=== PATIENT | male | born 1945 | race Caucasian/White ===

== ENCOUNTER 2018-12-14 15:29 | Outpatient (REF) | payer MEDICARE, OTHER, SELFPAY ==
[2018-12-14 22:41] LABS: ALT 31 U/L (12-78); AST 22 U/L (15-37); Albumin 3.7 g/dL (3.4-5.0); Alkaline Phosphatase 49 U/L (46-116); Anion Gap 9.4 mmol/L (3-11); BUN 26 mg/dL (7-18); Bilirubin, Total 0.5 mg/dL (0.2-1.0); CO2 28.6 mmol/L (21.0-32.0); CREATININE 1.22 mg/dL (0.70-1.30); Calcium 9.5 mg/dL (8.5-10.1); Chloride 103 mmol/L (98-107); Estimated GFR 58.23 (mL/min/1.73m2); Glucose 84 mg/dL (70-100); Potassium 4.3 mmol/L (3.5-5.1); Sodium 141 mmol/L (136-145); Total Protein 6.9 g/dL (6.4-8.2)
== END 2018-12-14 15:49 ==
LOC: NCHCN 15:29
PROVIDERS: PCP Family Medicine; Visit Provider Family Medicine
DX: E78.5 Hyperlipidemia, unspecified (principal); N18.3 Chronic kidney disease, stage 3 (moderate)
CPT/HCPCS: 80053

== ENCOUNTER → 2019-04-04 12:56 | Outpatient (BNVA) | payer MEDICARE, OTHER, SELFPAY | PROVIDERS: PCP Family Medicine; Referring Provider Family Medicine; Visit Provider Surgery | DX: K60.2 Anal fissure, unspecified (principal) | CPT/HCPCS: 99201; 99213 ==

== ENCOUNTER 2020-01-31 15:12 | Outpatient (REF) | payer MEDICARE, OTHER, SELFPAY ==
[2020-01-31 21:20] LABS: ALT 38 U/L (16-63); AST 24 U/L (15-37); Albumin 3.6 g/dL (3.4-5.0); Alkaline Phosphatase 48 U/L (46-116); Anion Gap 6.8 mmol/L (3-11); BUN 22 mg/dL (7-18); Bilirubin, Total 0.7 mg/dL (0.2-1.0); CO2 27.2 mmol/L (21.0-32.0); CREATININE 1.39 mg/dL (0.70-1.30); Calcium 8.9 mg/dL (8.5-10.1); Calculated LDL 98 mg/dL (<100); Chloride 104 mmol/L (98-107); Cholesterol 194 mg/dL (<200); Estimated GFR 49.95 (mL/min/1.73m2); Glucose 94 mg/dL (74-106); HDL Cholesterol 81 mg/dL (40-60); Potassium 4.2 mmol/L (3.5-5.1); Sodium 138 mmol/L (136-145); Total Protein 6.6 g/dL (6.4-8.2); Triglyceride 76 mg/dL (<150)
[2020-02-02 07:06] LABS: Vitamin D 25 Total 34.8 ng/ml (30-100)
== END 2020-01-31 15:32 ==
LOC: NCHCN 15:12
PROVIDERS: PCP Family Medicine; Visit Provider Family Medicine
DX: I10 Essential (primary) hypertension (principal); N18.3 Chronic kidney disease, stage 3 (moderate); N40.0 Benign prostatic hyperplasia without lower urinary tract symptoms
CPT/HCPCS: 80053; 80061; 82306

== ENCOUNTER 2020-06-22 21:46 | Outpatient (REF) | payer MEDICARE, OTHER, SELFPAY ==
[2020-06-25 09:20] LABS: PSA, Diagnostic 2.8 ng/mL (0.0-6.5)
== END 2020-06-22 22:06 ==
LOC: LBN 21:46
PROVIDERS: PCP Family Medicine; Visit Provider Urology
DX: R97.20 Elevated prostate specific antigen [PSA] (principal)
CPT/HCPCS: 84153

== ENCOUNTER 2021-02-05 15:56 | Outpatient (REF) | payer MEDICARE, OTHER, SELFPAY ==
[2021-02-05 16:49] LABS: ALT 27 U/L (16-63); AST 17 U/L (15-37); Albumin 3.7 g/dL (3.4-5.0); Alkaline Phosphatase 57 U/L (46-116); Anion Gap 7.9 mmol/L (3-11); BUN 29 mg/dL (7-18); Bilirubin, Total 0.8 mg/dL (0.2-1.0); CO2 29.1 mmol/L (21.0-32.0); CREATININE 1.6 mg/dL (0.70-1.30); Calcium 9.1 mg/dL (8.5-10.1); Chloride 105 mmol/L (98-107); Estimated GFR 42.35 (mL/min/1.73m2); Glucose 88 mg/dL (74-106); Potassium 4.4 mmol/L (3.5-5.1); Sodium 142 mmol/L (136-145)
== END 2021-02-05 15:57 | disposition home or self-care (01) ==
LOC: NCHCN 15:56
PROVIDERS: PCP Family Medicine; Visit Provider Family Medicine
DX: I10 Essential (primary) hypertension (principal); E78.5 Hyperlipidemia, unspecified; Z00.00 Encounter for general adult medical examination without abnormal findings
CPT/HCPCS: 80053

== ENCOUNTER 2022-01-30 16:03 | Outpatient (REF) | payer MEDICARE, OTHER, SELFPAY ==
[2022-01-30 16:43] LABS: ALT 30 U/L (16-63); AST 20 U/L (15-37); Albumin 3.6 g/dL (3.4-5.0); Alkaline Phosphatase 43 U/L (46-116); Anion Gap 6.5 mmol/L (3-11); BUN 26 mg/dL (7-18); Bilirubin, Total 0.8 mg/dL (0.2-1.0); CO2 30.5 mmol/L (21.0-32.0); CREATININE 1.7 mg/dL (0.70-1.30); Calcium 8.9 mg/dL (8.5-10.1); Calculated LDL 96 mg/dL (<100); Chloride 105 mmol/L (98-107); Cholesterol 186 mg/dL (<200); Estimated GFR 41.26 (mL/min/1.73m2); Glucose 86 mg/dL (74-106); HDL Cholesterol 71 mg/dL (40-60); Potassium 4.3 mmol/L (3.5-5.1); Sodium 142 mmol/L (136-145); Total Protein 6.8 g/dL (6.4-8.2); Triglyceride 99 mg/dL (<150)
[2022-01-31 20:42] LABS: PSA, Screening 6.5 ng/mL (<=6.5)
== END 2022-01-30 16:04 | disposition home or self-care (01) ==
LOC: NCHCN 16:03
PROVIDERS: PCP Family Medicine; Visit Provider Family Medicine
DX: E78.5 Hyperlipidemia, unspecified (principal); N40.0 Benign prostatic hyperplasia without lower urinary tract symptoms; Z12.5 Encounter for screening for malignant neoplasm of prostate
CPT/HCPCS: 80053; 80061; 84153

== ENCOUNTER 2023-02-05 09:58 | Outpatient (REF) | payer MEDICARE, SELFPAY ==
[2023-02-05 16:03] LABS: ALT 34 U/L (16-63); AST 26 U/L (15-37); Albumin 3.5 g/dL (3.4-5.0); Alkaline Phosphatase 48 U/L (46-116); Anion Gap 6.4 mmol/L (3-11); BUN 31 mg/dL (7-18); Bilirubin, Total 0.7 mg/dL (0.2-1.0); CO2 28.6 mmol/L (21.0-32.0); CREATININE 1.6 mg/dL (0.70-1.30); Calcium 9.2 mg/dL (8.5-10.1); Calculated LDL 110 mg/dL (<100); Chloride 106 mmol/L (98-107); Cholesterol 204 mg/dL (<200); Glucose 96 mg/dL (74-106); HDL Cholesterol 75 mg/dL (40-60); Potassium 4.5 mmol/L (3.5-5.1); Sodium 141 mmol/L (136-145); Total Protein 6.9 g/dL (6.4-8.2); Triglyceride 99 mg/dL (<150)
[2023-02-05 22:46] LABS: PSA, Diagnostic 5.8 ng/mL (<=6.5)
== END 2023-02-05 09:59 | disposition home or self-care (01) ==
LOC: NCHCN 09:58
PROVIDERS: PCP Family Medicine; Visit Provider Family Medicine
DX: I10 Essential (primary) hypertension (principal); E78.5 Hyperlipidemia, unspecified; R97.20 Elevated prostate specific antigen [PSA]
CPT/HCPCS: 80053; 80061; 84153

== ENCOUNTER 2024-02-09 12:30 | Outpatient (REF) | payer MEDICARE, SELFPAY ==
[2024-02-09 16:38] LABS: ALT 21 U/L (16-63); AST 18 U/L (15-37); Albumin 3.2 g/dL (3.4-5.0); Alkaline Phosphatase 53 U/L (46-116); Anion Gap 7.1 mmol/L (3-11); BUN 31 mg/dL (7-18); Bilirubin, Total 0.53 mg/dL (0.2-1.0); CO2 27.9 mmol/L (21.0-32.0); CREATININE 1.6 mg/dL (0.70-1.30); Calculated LDL 152 mg/dL (<100); Chloride 106 mmol/L (98-107); Cholesterol 249 mg/dL (<200); Estimated GFR 43.83 (mL/min/1.73m2); Glucose 95 mg/dL (74-106); HDL Cholesterol 71 mg/dL (40-60); Potassium 4.3 mmol/L (3.5-5.1); Sodium 141 mmol/L (136-145); Total Protein 6.6 g/dL (6.4-8.2); Triglyceride 130 mg/dL (<150)
[2024-02-10 09:35] LABS: PSA, Diagnostic 8.1 ng/mL (<=6.5)
== END 2024-02-09 12:31 | disposition home or self-care (01) ==
LOC: NCHCN 12:30
PROVIDERS: PCP Family Medicine; Visit Provider Family Medicine
DX: I10 Essential (primary) hypertension (principal); R97.20 Elevated prostate specific antigen [PSA]
CPT/HCPCS: 80053; 80061; 84153

== ENCOUNTER 2024-07-14 15:13 | Outpatient (REF) | payer MEDICARE, SELFPAY ==
[2024-07-14 23:16] LABS: PSA, Diagnostic 7.8 ng/mL (<=6.5)
== END 2024-07-14 15:14 | disposition home or self-care (01) ==
LOC: LBN 15:13
PROVIDERS: PCP Family Medicine; Visit Provider Urology
DX: R97.20 Elevated prostate specific antigen [PSA] (principal)
CPT/HCPCS: 84153

== ENCOUNTER 2025-01-07 09:00 | Emergency (ER) | payer MEDICARE, SELFPAY ==
[2025-01-07 09:08] VITALS: BP 141/87; PULSE 69; RESP 18; TEMP 36.6; O2SAT 96
[2025-01-07 09:13] VITALS: BP 141/87; PULSE 69; RESP 18; TEMP 36.6; O2SAT 96
--- NOTE | 2025-01-07 09:43 | W.ED.GENAD ---
Discharge Plan Disposition Patient Disposition: Home Condition: Stable Discharge Details Clinical Impression: Constipation Primary Care Provider: Matt Donohue ED Provider: Feng Smith Home Meds and New Rx's Prescriptions: No Action hydrocortisone acetate [Proctocort] 30 mg suppository 30 mg PA BID Qty: 42 0RF finasteride 1 mg tablet 1 mg PO DAILY magnesium oxide 420 mg tablet 420 mg PO DAILY lutein 6 mg capsule 6 mg PO DAILY cetirizine [Zyrtec] 10 MG tablet 10 mg PO DAILY atorvastatin [Lipitor] 10 MG tablet 10 mg PO DAILY omeprazole 40 MG capsule,delayed release(DR/EC) 40 mg PO DAILY tadalafil [Cialis] 10 MG tablet 10 mg PO PRN Fish Oil 1 EACH capsule 1 ea PO DAILY cyclosporine [Restasis] 1 EACH dropperette 1 ea Ophthalmic QID budesonide-formoterol [Symbicort] 10.2 GM HFA aerosol inhaler 2 puff Inhalation BID glucosam-chond og-dyulyu-fd ac 1 EACH capsule 1 ea PO DAILY PROVENTIL HFA 18 GM HFA.AER.AD 1 puff Inhalation Q6H PRN hydrocortisone acetate 2.5 % cream with perineal applicator 1 applic PA BID 21 Days Qty: 28.4 2RF fluticasone furoate-vilanterol [Breo Ellipta] 100-25 mcg/dose blister with device 1 inh inhalation DAILY omeprazole 40 mg capsule,delayed release(DR/EC) 40 mg PO DAILY metronidazole [MetroCream] 0.75 % cream 1 applic topical DAILY valacyclovir 500 mg tablet 500 mg PO BID PRN Discharge Instructions Instructions: Constipation, Adult ED Additional Instructions: You were seen in the emergency department for your rectal burning sensation after some experimentation 1 month ago and noting that you have had stool changes including 1 narrow stool yesterday and no stool for almost 24 hours while you are still passing gas. You have no abdominal pain, please take stool softeners and MiraLAX tonight, we know that you are not obstructed because you are passing gas and you had stool yesterday, if you experience worsening or stop producing any flatus and develop abdominal pain and nausea please return for CAT scan, due to your stool changes please follow-up with your primary care for referral to general surgery for colonoscopy should you continue to have changes to stool. Referrals: Matt Donohue [Primary Care Provider, Medicine] Discharge Data Discharge Date/Time-TO BE ENTERED AT DEPARTURE: 01/07/25 09:52 HPI General Date/Time Provider Initiated Documentation: 01/07/25 09:12. HPI Narrative: 79 year-old male presents to ED today by POV/ambulating with a chief complaint of self-injury to rectum with toy with onset about 1 month ago, now having burning sensation when he has a BM. Quality described as burning, no radiation to bleeding, black/bloody stools, endorses not having a bowel movement in almost 24 hours which is rare for him, fever, nausea, vomiting, abdominal pain. Severity is described as moderate. Palliating factors include nothing specific attempted. Provoking factors include nothing specific. Patient not anticoagulated. Related Data Home Medications ?Medication ?Instructions ?Recorded ?Confirmed Proventil Hfa 1 puff inhalation Q6H PRN 08/04/17 01/07/25 atorvastatin 10 mg tablet (Lipitor) 10 mg PO DAILY 08/04/17 01/07/25 budesonide-formoterol HFA 80 2 puff inhalation BID 08/04/17 01/07/25 mcg-4.5 mcg/actuation aerosol inhaler (Symbicort) cetirizine 10 mg tablet (Zyrtec) 10 mg PO DAILY 08/04/17 01/07/25 cyclosporine 0.05 % eye drops in a 1 ea ophthalmic (eye) QID 08/04/17 01/07/25 dropperette (Restasis) ktkzryekol-qpxtdkdjrk-hauihjeg-hyalur 1 ea PO DAILY 08/04/17 01/07/25 ac 375 mg-300 mg-175 mg-2 mg cap omega-3 fatty acids-fish oil 340 1 ea PO DAILY 08/04/17 01/07/25 mg-1,000 mg capsule (Fish Oil) omeprazole 40 mg capsule,delayed 40 mg PO DAILY 08/04/17 01/07/25 release tadalafil 10 mg tablet (Cialis) 10 mg PO PRN 08/04/17 01/07/25 finasteride 1 mg tablet 1 mg PO DAILY 04/04/19 01/07/25 hydrocortisone acetate 30 mg 30 mg PA BID #42 supp 04/04/19 01/07/25 rectal suppository (Proctocort) lutein 6 mg capsule 6 mg PO DAILY 04/04/19 01/07/25 magnesium oxide 420 mg tablet 420 mg PO DAILY 04/04/19 01/07/25 hydrocortisone acetate 2.5 % 1 applic PA BID hemorrhoids 3 04/05/19 01/07/25 topical cream with perineal weeks #28.4 grams applicator fluticasone furoate 100 1 inh inhalation DAILY 01/07/25 01/07/25 mcg-vilanterol 25 mcg/dose inhalation powder (Breo Ellipta) metronidazole 0.75 % topical cream 1 applic topical DAILY 01/07/25 01/07/25 (MetroCream) omeprazole 40 mg capsule,delayed 40 mg PO DAILY 01/07/25 01/07/25 release valacyclovir 500 mg tablet 500 mg PO BID PRN 01/07/25 01/07/25 Previous Rx's ?Medication ?Instructions ?Recorded hydrocortisone acetate 30 mg 30 mg PA BID #42 supp 04/04/19 rectal suppository (Proctocort) hydrocortisone acetate 2.5 % 1 applic PA BID hemorrhoids 3 04/05/19 topical cream with perineal weeks #28.4 grams applicator Allergies Allergy/AdvReac Type Severity Reaction Status Date / Time acetaminophen (From Percocet) Allergy Other (See Unverified 01/07/25 09:12 Comment) oxycodone HCl (From Percocet) Allergy Other (See Unverified 01/07/25 09:12 Comment) General Stated Complaint: [facility] BERTHA: 3 Review of Systems All systems reviewed & are unremarkable except as noted in HPI and below Exam Narrative Exam Narrative: GENERAL APPEARANCE: Well-nourished, non-toxic, awake and alert, atraumatic, no acute distress. SKIN: Warm, pink, dry, intact, without rashes/lesions/ulcerations. HEAD: Normocephalic, atraumatic, normal hair distribution for gender/age. EYES: Normal conjunctiva, no exudates on lids/lashes. ENT: Nares patent, no circumoral cyanosis, no facial swelling NECK: Supple, trachea midline, painless cervical ROM. LUNGS/CHEST: Non-labored respirations, normal A/P diameter, symmetrical expansion, no chest wall deformity HEART (CV/PV): No peripheral edema, no JVD. ABDOMEN: Soft, non-distended, no guarding, no tenderness, no CVA tenderness to percussion bilaterally. No external abnormality of perianal abscess or fissue seen, DEXTER shows no fluctuant swelling, stool palpated in rectum, no jeaneth blood, possible small internal hemorrhoid at 12 o'clock position. MSK: Normal ROM, no swelling/deformity to bilateral UEs or LEs, moving all extremities without weakness, no cyanosis, spine midline without tenderness, normal curvature. NEURO: Mental Status AAOx4 - alert to person, place, time, events No facial droop, no forehead involvement. Motor: No focal weakness - strength 5/5 in bilateral UEs and LEs, proximal and distal, symmetric. Sensory: sensation intact to light touch globally. Gait normal: patient ambulated without ataxia into ED room. PSYCH: euthymic, cooperative, pleasant, appropriate speech Course Vital Signs Vital signs: Vital Signs Temperature 36.6 C 01/07/25 09:08 Pulse 69 01/07/25 09:08 Respiratory Rate 18 01/07/25 09:08 Blood Pressure 141/87 H 01/07/25 09:08 Pulse Oximetry 96 01/07/25 09:08 Temperature 36.6 C 01/07/25 09:13 Temperature Source Oral 01/07/25 09:13 Pulse 69 01/07/25 09:13 Respiratory Rate 18 01/07/25 09:13 Blood Pressure 141/87 H 01/07/25 09:13 Pulse Oximetry 96 01/07/25 09:13 Medical Decision Making This dictation utilizes [id number] dictation software and may contain unedited grammatical errors. 79 year-old male presents to ED today by POV/ambulating with a chief complaint of self-injury to rectum with toy with onset about 1 month ago, now having burning sensation when he has a BM. Quality described as burning, no radiation to bleeding, black/bloody stools, endorses not having a bowel movement in almost 24 hours which is rare for him, fever, nausea, vomiting, abdominal pain. Severity is described as moderate. Palliating factors include nothing specific attempted. Provoking factors include nothing specific. Patients' medical history: Noncontributory. Family and social history: Lives with his . Pertinent exam findings / vital signs include no abdominal tenderness, no CVA tenderness percussion bilaterally, benign cardiopulmonary status, nontoxic and afebrile, no blood or nodular swellings on DEXTER, no anal fissure or perianal abscess visualized. Differential / pathologies of concern include constipation, internal hemorrhoid, unlikely acute rectal injury after 1 month onset. Diagnostic studies of: - None, discussed that aggressive workup with irradiating studies is not necessarily warranted with benign physical exam and onset 1 month after initial event. Interventions of: -Recommend stool softeners. ED Course/Assessment/Plan: 79-year-old male has persistent rectal burning sensation 1 month after possibly having a rectal injury using a toy, he has had bowel movements up until this point but reports constipation for the past 24 hours, I recommend stool softeners, there was stool palpated in the rectum and no visible external abnormality, no palpable internal abnormality save for a possible internal hemorrhoid at the 12 o'clock position but patient denies any bleeding, with his reassuring exam and clinical course I think he should seek outpatient appointment with general surgery for possible colonoscopy at some point but do not feel radiating CT is warranted at this point. Findings not consistent with rectal bleeding, anal fissure, perianal abscess, SBO. Disposition of Constipation. Patient verbalized understanding of the plan and return to ED criteria and engaged in shared decision making. Medical Records Medical records reviewed: Yes I reviewed the patient's medical records. PFSH All Active Problems (Updated 01/07/25 @ 09:46 by SABINA Barreto) Constipation (Acute) Medical History (Updated 01/07/25 @ 09:46 by SABINA Barreto) Chronic sinusitis Hypertension Seasonal allergies Rosacea GERD (gastroesophageal reflux disease) Right shoulder pain Skin lesion Renal insufficiency DJD (degenerative joint disease) Easy bruising Left arm pain Hyperlipidemia Genetic disorder History of tobacco use Rectal disorder Allergic asthma Shortness of breath Social History Smoking/Tobacco Use Status: Never Smoking risk assessment performed?: Yes Alcohol Intake: never Drug use: Never Substance use type: does not use
[2025-01-07 09:51] VITALS: RESP 18
== END 2025-01-07 09:52 | disposition home or self-care (01) ==
LOC: ER 10:03
PROVIDERS: Emergency Provider Physician Assistant; PCP Family Medicine
DX: K59.00 Constipation, unspecified (principal); K62.89 Other specified diseases of anus and rectum
CPT/HCPCS: 99283; 99282

== ENCOUNTER → 2025-02-07 09:32 | Outpatient (BNVA) | payer MEDICARE, SELFPAY | PROVIDERS: PCP Family Medicine; Referring Provider Family Medicine; Visit Provider Student in an Organized Health Care Education/Training Program | DX: K62.89 Other specified diseases of anus and rectum (principal) | CPT/HCPCS: 99213 ==

== ENCOUNTER 2025-03-09 09:36 | Outpatient (REF) | payer MEDICARE, SELFPAY ==
[2025-03-09 15:08] LABS: ALT 26 U/L (16-63); AST 20 U/L (15-37); Albumin 3.3 g/dL (3.4-5.0); Alkaline Phosphatase 46 U/L (46-116); Anion Gap 8.6 mmol/L (3-11); BUN 27 mg/dL (7-18); Bilirubin, Total 0.8 mg/dL (0.2-1.0); CO2 28.4 mmol/L (21.0-32.0); Calcium 8.9 mg/dL (8.5-10.1); Calculated LDL 100 mg/dL (<100); Chloride 104 mmol/L (98-107); Cholesterol 197 mg/dL (<200); Estimated GFR 51.13 (mL/min/1.73m2); Glucose 93 mg/dL (74-106); HDL Cholesterol 78 mg/dL (>or=40); Potassium 4.2 mmol/L (3.5-5.1); Sodium 141 mmol/L (136-145); Total Protein 6.6 g/dL (6.4-8.2); Triglyceride 98 mg/dL (<150)
== END 2025-03-09 09:37 | disposition home or self-care (01) ==
LOC: NCHCN 09:36
PROVIDERS: PCP Family Medicine; Visit Provider Family Medicine
DX: E78.5 Hyperlipidemia, unspecified (principal); I10 Essential (primary) hypertension
CPT/HCPCS: 80053; 80061